=== PATIENT | female | born 1970 | race Caucasian/White ===

== ENCOUNTER 2019-03-12 21:29 | Emergency (ER) | payer OTHER ==
[2019-03-12 21:42] VITALS: BP 110/65
--- NOTE | 2019-03-12 22:22 | EDM.PDOC ---
ED HPI GENERAL MEDICAL PROBLEM - General Chief Complaint: Lower Extremity Injury/Pain Stated Complaint: Left ankle pain Time Seen by Provider: 03/12/19 21:56 Source of Information: Reports: Patient History Limitations: Reports: No Limitations - History of Present Illness INITIAL COMMENTS - FREE TEXT/NARRATIVE: Patient comes to ER for evaluation of left ankle injury sustained as she was stepping off of some landscaping at her home. Rolled ankle, heard pop, ended up on ground secondary to pain in ankle. Unable to weight bear on affected foot. No other injuries. Toes are mildly numb. No other neuro changes. ROS otherwise negative. 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 ED EXAM, GENERAL - Physical Exam Exam: See Below Exam Limited By: No Limitations General Appearance: Alert, WD/WN, Mild Distress Eye Exam: Bilateral Eye: EOMI, PERRL Throat/Mouth: Normal Voice, No Airway Compromise Head: Atraumatic, Normocephalic Neck: Supple Respiratory/Chest: No Respiratory Distress Peripheral Pulses: 2+: Dorsalis Pedis (L) Extremities: Other (Bruising, swelling, tenderness noted over lateral malleolus. No laxity noted. No crepitus. No deformity. Foot nontender otherwise as is lower leg. ) Neurological: Alert, Oriented Psychiatric: Normal Affect, Normal Mood Skin Exam: Warm, Dry, Intact Course - Vital Signs Last Recorded V/S: Last Vital Signs Temp 36.9 C 03/12/19 21:40 Pulse 73 03/12/19 21:40 Resp 15 03/12/19 21:40 BP 110/65 03/12/19 21:40 Pulse Ox 99 03/12/19 21:40 - Orders/Labs/Meds Orders: Active Orders 24 hr Category Date Time Status Ankle Min 3V Lt [CR] Stat Exams 03/12/19 21:33 Taken - Re-Assessments/Exams Free Text/Narrative Re-Assessment/Exam: 03/12/19 22:31 Xray of ankle performed. Small irregularity noted distal fibula. Pending Radiology review. For now, ankle was immobilized in a posterior splint. Patient given crutches for use. To avoid weight bearing over the next few days and to make a follow up appointment for re-evaluation for Tuesday. Ankle can be rechecked at that time as can xray report. If no fracture noted, patient made aware that xrays can be repeated in 7-10 days to more fully rule out fracture if pain has not improved significantly. Departure - Departure Time of Disposition: 22:19 Disposition: Home, Self-Care 01 Condition: Good Clinical Impression: Left ankle injury Qualifiers: Encounter type: initial encounter Qualified Code(s): S99.912A - Unspecified injury of left ankle, initial encounter - Discharge Information *PRESCRIPTION DRUG MONITORING PROGRAM REVIEWED*: Not Applicable *COPY OF PRESCRIPTION DRUG MONITORING REPORT IN PATIENT [facility]RAH[facility]: Not Applicable Referrals: PCP,None [Primary Care Provider] - Forms: ED Department Discharge Additional Instructions: Avoid weight bearing on injured ankle. Use crutches for assistance. Ice/ elevation can help with pain. You may use the Tylenol #3 one every 4-6 hours as needed and add one single regular Tylenol each time (325mg) for pain as discussed. Call the clinic of your choice tomorrow and get an appointment to be checked out again on Tuesday. Xray results can be reviewed at that time/additional images ordered as needed. We will try to contact you tomorrow from the ER if we see your report come through. - My Orders Last 24 Hours: My Active Orders 03/12/19 21:33 Ankle Min 3V Lt [CR] Stat - Assessment/Plan Last 24 Hours: My Active Orders 03/12/19 21:33 Ankle Min 3V Lt [CR] Stat
== END 2019-03-12 22:30 | disposition home or self-care (01) ==
LOC: LL.ED 21:29
DX: S99.912A Unspecified injury of left ankle, initial encounter (principal); X50.1XXA Overexertion from prolonged static or awkward postures, initial encounter; Y92.009 Unspecified place in unspecified non-institutional (private) residence as the place of occurrence of the external cause; Z79.899 Other long term (current) drug therapy
CPT/HCPCS: 29515; 73610-LT; 99283-25